=== PATIENT | female | born 1960 | race Hispanic/Latino ===

== ENCOUNTER 2016-12-06 20:19 | Emergency (ER) | payer OTHER ==
[2016-12-06 23:10] LABS: Basophils % (Auto) 0.6 % (0.0-1.8); Eosinophils % (Auto) 1.2 % (0.0-4.3); Hematocrit 40.9 % (30.3-42.9); Hemoglobin 13.6 gm/dl (10.1-14.3); Mean Corpuscular HGB Conc 33 % (30-34); Mean Corpuscular Hemoglobin 28 pg (28-32); Mean Corpuscular Volume 83 fl (79-97); Platelet Count 168 K/mm3 (140-440); Red Blood Count 4.91 M/mm3 (3.65-5.03); Red Cell Distribution Width 14.1 % (13.2-15.2); White Blood Count 5.5 K/mm3 (4.5-11.0)
[2016-12-06 23:30] LABS: Anion Gap 17 mmol/L; BUN/Creatinine Ratio 11.42; Blood Urea Nitrogen 8 mg/dL (7-17); Calcium 9.1 mg/dL (8.4-10.2); Carbon Dioxide 25 mmol/L (22-30); Chloride 98.4 mmol/L (98-107); Glucose 158 mg/dL (65-100); Potassium 4.1 mmol/L (3.6-5.0); Sodium 136 mmol/L (137-145)
[2016-12-07] MEDS ORDERED: TORADOL IM ONE (01:39)
[2016-12-07] MEDS ORDERED: PERCOCET 5/325 PO ONE (01:39)
[2016-12-07] MEDS ORDERED: ZOFRAN ODT PO ONE (01:39)
[2016-12-07] MEDS ORDERED: BENADRYL IM ONE (01:39)
--- NOTE | 2016-12-07 01:39 | Emergency Department Report ---
ED Headache HPI - General Chief Complaint: Headache Stated Complaint: SEVERE MIGRAINE,MUSCLE SPASMS,CONGESTION Time Seen by Provider: 12/07/16 00:52 Source: patient, family Exam Limitations: no limitations - History of Present Illness Initial Comments: Patient here complaining of migraine headache for 4 days. Says she sees Dr. Santa but she has not seen him in a while. Patient primary care physician is Dr. Morgan. She said the headache is 8 out of 10 and achy and located in the front of her head. Similar headache in the past. Denies any nausea vomiting of. Denies any sinus pain or pressure. Denies any fever or chills. Denies any neck pain or stiffness. Denies any cough or congestion. Denies any head injury. She said her eyes are sensitive to the right and this usually happen when she has a headache. Patient also complaining that her lower leg was cramping today but she doesn't have any cramping at present. Timing/Duration: waxing and waning, other (waxing and waning for 4 days) Quality: moderate Head Injury Location: frontal Recent Head Trauma: chronic headaches Modifying Factors: improves with: exposure to light Associated Symptoms: denies: confusion, fatigue, facial pain, fever/chills, flushing, loss of consciousness, nausea/vomiting, nasal congestion, nasal drainage, numbness in legs/feet, rash, seizures, sinus infection, stiff neck, vision changes, weakness Allergies/Adverse Reactions: Allergies No Known Allergies Allergy (Verified 12/06/16 22:09) Home Medications: Ambulatory Orders Butalbit/Acetamin/Caff/Codeine [Fioricet/Codeine [id number]] 1 cap PO Q8HR PRN #15 cap 12/07/16 ED Review of Systems ROS: Stated complaint: SEVERE MIGRAINE,MUSCLE SPASMS,CONGESTION Other details as noted in HPI Comment: All other systems reviewed and negative Constitutional: denies: chills, fever Eyes: denies: eye pain, vision change ENT: denies: ear pain, throat pain, congestion Respiratory: no symptoms reported Cardiovascular: denies: chest pain, palpitations, edema, syncope Gastrointestinal: denies: abdominal pain, nausea, vomiting, diarrhea Genitourinary: denies: urgency, dysuria, frequency, hematuria, discharge Musculoskeletal: denies: back pain, arthralgia Skin: denies: rash Neurological: headache. denies: weakness, numbness, paresthesias, confusion, abnormal gait, vertigo ED Past Medical Hx - Past Medical History Previous Medical History?: Yes Additional medical history: Migraines - Surgical History Past Surgical History?: Yes Additional Surgical History: Hyst, Foot - Family History Family history: no significant - Social History Smoking Status: Never Smoker Substance Use Type: Alcohol - Medications Home Medications: Home Medications Medication Instructions Recorded Confirmed Last Taken Type Butalbit/Acetamin/Caff/Codeine 1 cap PO Q8HR PRN #15 cap 12/07/16 Unknown Rx [Fioricet/Codeine [id number]] ED Physical Exam - General Limitations: No Limitations General appearance: alert, in no apparent distress - Head Head exam: Present: atraumatic, normocephalic, normal inspection - Expanded Head Exam Expanded Head exam: Absent: laceration, abrasion, contusion, hematoma, racoon eyes, lopez's sign, general tenderness, tenderness of temporal artery, CSF rhinorrhea , CSF otorrhea - Eye Eye exam: Present: normal appearance, PERRL, EOMI. Absent: nystagmus, periorbital swelling, periorbital tenderness Pupils: Present: normal accommodation - ENT ENT exam: Present: normal exam, normal orophraynx, mucous membranes moist, TM's normal bilaterally, normal external ear exam, other (nasal mucosa normal and maxillary and frontal sinuses nontender to palpate.) - Neck Neck exam: Present: normal inspection, full ROM. Absent: tenderness, meningismus, lymphadenopathy - Expanded Neck Exam Expanded Neck exam: Absent: tenderness, midline deformity, anterior neck swelling, tracheal deviation - Respiratory Respiratory exam: Present: normal lung sounds bilaterally. Absent: respiratory distress, chest wall tenderness - Cardiovascular Cardiovascular Exam: Present: regular rate, normal rhythm, normal heart sounds - GI/Abdominal GI/Abdominal exam: Present: soft, normal bowel sounds. Absent: distended, tenderness, guarding, rebound, rigid - Extremities Exam Extremities exam: Present: normal inspection, full ROM, normal capillary refill , other (patient with good color, movement, sensation in temperature to bilateral lower extremity. No signs of neurovascular compromise and she has palpable pedal pulses are 2+.). Absent: tenderness, pedal edema, joint swelling , calf tenderness - Back Exam Back exam: Present: normal inspection, full ROM. Absent: tenderness, CVA tenderness (R), CVA tenderness (L), muscle spasm, paraspinal tenderness, vertebral tenderness, rash noted - Neurological Exam Neurological exam: Present: alert, oriented X3, normal gait, reflexes normal. Absent: motor sensory deficit - Expanded Neurological Exam Expanded Neurological exam: Absent: innattentive, memory loss-remote event, memory loss- recent event, ataxia, receptive aphasia, expressive aphasia, total aphasia, tremor, protecting the airway Patient oriented to: Present: person, place, time Speech: Present: fluid speech Cranial nerves: EOM's Intact: Normal, Gag Reflex: Normal, Nystagmus: Normal Cerebellar function: Romberg: Normal Upper motor neuron: Pronator Drift: Normal Sensory exam: Upper Extremity Light Touch: Normal, Upper Extremity Temperature: Normal, Lower Extremity Light Touch: Normal, Lower Extremity Temperature: Normal Motor strength exam: RUE: 5, LUE: 5, RLE: 5, LLE: 5 DTR: bicep (R): 2+, bicep (L): 2+, tricep (R): 2+, tricep (L): 2+, knee (R): 2+ , knee (L): 2+, ankle (R): 2+, ankle (L): 2+ Best Eye Response ([place]): (4) open spontaneously Best Motor Response ([place]ardo): (6) obeys commands Best Verbal Response ([place]): (5) oriented Everardo Total: 15 - Psychiatric Psychiatric exam: Present: normal affect, normal mood - Skin Skin exam: Present: warm, dry, intact, normal color. Absent: rash ED Course Vital Signs 12/06/16 12/06/16 12/07/16 20:34 23:50 02:33 Temperature 99.7 F H 100.4 F H 98 F Pulse Rate 96 H 88 79 Respiratory 20 18 18 Rate Blood Pressure 117/81 122/78 153/75 [Right] O2 Sat by Pulse 100 100 100 Oximetry - Reevaluation(s) Reevaluation #1: 12/07/16 03:16 Patient given Percocet 5/325 mg 2 tablets by mouth, Zofran ODT, Benadryl IM, Toradol IM, Deltasone in emergency room for headache. Patient reports that her headache is better and she is feeling better and ready to go home. 12/07/16 03:16 ED Medical Decision Making - Lab Data Result diagrams: 12/06/16 22:50 12/06/16 22:50 Lab Results 12/06/16 12/06/16 Range/Units 22:50 22:50 WBC 5.5 (4.5-11.0) K/mm3 RBC 4.91 (3.65-5.03) M/mm3 Hgb 13.6 (10.1-14.3) gm/dl Hct 40.9 (30.3-42.9) % MCV 83 (79-97) fl MCH 28 (28-32) pg MCHC 33 (30-34) % RDW 14.1 (13.2-15.2) % Plt Count 168 (140-440) K/mm3 Lymph % (Auto) 15.0 (13.4-35.0) % [place] % (Auto) 14.1 H (0.0-7.3) % Eos % (Auto) 1.2 (0.0-4.3) % Baso % (Auto) 0.6 (0.0-1.8) % Lymph # 0.8 L (1.2-5.4) K/mm3 [place] # 0.8 (0.0-0.8) K/mm3 Eos # 0.1 (0.0-0.4) K/mm3 Baso # 0.0 (0.0-0.1) K/mm3 Seg Neutrophils % 69.1 (40.0-70.0) % Seg Neutrophils # 3.8 (1.8-7.7) K/mm3 Sodium 136 L (137-145) mmol/L Potassium 4.1 (3.6-5.0) mmol/L Chloride 98.4 (98-107) mmol/L Carbon Dioxide 25 (22-30) mmol/L Anion Gap 17 mmol/L BUN 8 (7-17) mg/dL Creatinine 0.7 (0.7-1.2) mg/dL Estimated GFR > 60 ml/min BUN/Creatinine Ratio 11.42 % Glucose 158 H (65-100) mg/dL Calcium 9.1 (8.4-10.2) mg/dL Magnesium 2.0 (1.7-2.3) mg/dL - Medical Decision Making ED course: Patient here complaining of flareup of migraine headache. Has a neurologist and a primary care physician if she is following. Patient was given Toradol 60 mg IM, Deltasone 60 mg by mouth, Zofran 4 mg by mouth, Percocet 5/325 mg 2 tablets by mouth and Benadryl 50 mg IM for headache. Upper reevaluation, she said her headache is much better and she is able to go home. I discussed the patient that she needs to follow up with Dr. Santa regarding management of chronic headache. I also discussed with her she needs to call Dr. Morgan and schedule an appointment for follow-up visit. Patient discharged home with her family in stable condition with prescription for Fioricet. Critical care attestation.: If time is entered above; I have spent that time in minutes in the direct care of this critically ill patient, excluding procedure time. ED Disposition Clinical Impression: Headache Qualifiers: Headache type: unspecified Headache chronicity pattern: chronic headache Intractability: not intractable Qualified Code(s): R51 - Headache Leg cramps Qualifiers: Laterality: bilateral Qualified Code(s): R25.2 - Cramp and spasm Disposition: DISCHARGED TO HOME OR SELFCARE Is pt being admited?: No Does the pt Need Aspirin: No Condition: Stable Instructions: Leg Cramps (ED), Migraine Headache (ED) Additional Instructions: Please follow-up with your neurologist in 1-2 days. Call primary care physician and schedule appointment for this week. If you have headache returned and is not relieved with pain medication, you cannot get a regular primary care physician or your neurologist she can return to emergency room Pain medication that were given for headache as prescription has codeine in it and can cause drowsiness so please do not drive or operate machinery while taking this medication. Prescriptions: Butalbit/Acetamin/Caff/Codeine [Fioricet/Codeine [id number]] 1 cap PO Q8HR PRN #15 cap PRN Reason: Headache Referrals: EULALIO MORGAN MD [Staff Physician] - 12/08/16 NANCY SANTA MD [Staff Physician] - 12/08/16 Forms: Work/School Release Form(ED)
[2016-12-07] MEDS ORDERED: DELTASONE PO ONE (01:40)
[2016-12-07 02:35] VITALS: BP 153/75
== END 2016-12-07 03:31 | disposition home or self-care (01) ==
LOC: ED 20:19
DX: G43.909 Migraine, unspecified, not intractable, without status migrainosus (principal); R25.2 Cramp and spasm
CPT/HCPCS: 36415; 80048; 83735; 85025; 96372; 99283; J1200; J1885; J7512; Q0162